=== PATIENT | female | born 1945 | race Caucasian/White ===

== ENCOUNTER 2019-03-22 15:07 | Emergency (ER) | payer MEDICARE ==
[~2019-03-22] VITALS: Ht 167.6 cm; Wt 52.2 kg
--- NOTE | 2019-03-22 15:15 | NUR ---
molina, from [facility], had syncopal episode, no trauma/injury, pale, bs 313. On room air, breathing evenly and unlabored. connected to the monitor and pulse ox. Kept comfortable, will continue to monitor accordingly.
--- NOTE | 2019-03-22 15:47 | NUR ---
pt ambulate to the bathroom wit 1 person assist
--- NOTE | 2019-03-22 15:47 | NUR ---
benton at bedside for x-ray
[2019-03-22 15:49] LABS: BASOPHILS % (AUTO) 0.3 % (0.0-2.0); EOSINOPHILS % (AUTO) 0.6 % (0.0-6.0); HEMATOCRIT 31 % (33-45); HEMOGLOBIN 10.2 g/dL (11.5-14.8); LYMPHOCYTES # (AUTO) 1.2 /CMM (0.8-4.8); LYMPHOCYTES % (AUTO) 18.6 % (20.0-44.0); MEAN CORPUSCULAR HGB CONC 33 g/dl (31.0-36.0); MEAN CORPUSCULAR VOLUME 92 fL (82-100); MONOCYTES # (AUTO) 0.4 /CMM (0.1-1.30); MONOCYTES % (AUTO) 6.3 % (2.0-12.0); NEUTROPHILS # (AUTO) 4.9 /CMM (1.8-8.9); NEUTROPHILS % (AUTO) 74.2 % (43.0-81.0); PLATELET COUNT (AUTO) 269 /CMM (150-450); RED BLOOD CELL COUNT(AUTO) 3.35 MIL/uL (4.0-5.2); WHITE BLOOD COUNT (AUTO) 6.6 K/uL (4.3-11.0)
[2019-03-22 15:57] LABS: ALANINE AMINOTRANSFERASE 10 U/L (12-78); ALBUMIN 4.2 g/dL (3.4-5.0); ALKALINE PHOSPHATASE 58 U/L (46-116); ASPARTATE AMINOTRANSFERASE 15 U/L (15-37); BILIRUBIN,DIRECT 0.1 mg/dL (0.0-0.2); BILIRUBIN,TOTAL 0.5 mg/dL (0.2-1.0); CARBON DIOXIDE 30 mmol/L (21-32); CHLORIDE 104 mmol/L (98-107); CREATININE 1.1 mg/dL (0.6-1.3); GLUCOSE 107 mg/dL (74-106); POTASSIUM 3.9 mmol/L (3.5-5.1); SODIUM SERUM 142 mmol/L (136-145); TOTAL PROTEIN, SERUM 7.1 g/dL (6.4-8.2); UREA NITROGEN, BLOOD 37 mg/dL (7-18)
--- NOTE | 2019-03-22 16:57 | NUR ---
TRANSPORT CALLED [facility] 1929 TRIP #[id number]
[2019-03-22 18:36] VITALS: BP 105/55
--- NOTE | 2019-03-22 18:37 | NUR ---
IV removed. Catheter intact and site benign. Pressure and 4x4 applied to site. No bleeding noted. Patient picked up by her son going back to [facility]. In no distress.
== END 2019-03-22 18:37 ==
LOC: ER 15:08
DX: R55 Syncope and collapse (principal); R42 Dizziness and giddiness; G20 Parkinson's disease
CPT/HCPCS: 36415; 71045-TC; 80048-TC; 80076-TC; 84484-TC; 85025-TC

== ENCOUNTER 2019-03-24 11:54 | Emergency (ER) | payer MEDICARE ==
[~2019-03-24] VITALS: Ht 167.6 cm; Wt 58.7 kg
--- NOTE | 2019-03-24 12:45 | NUR ---
BIBRA 881 C/O GLF "MY KNEES GOT WEAK AND FELL"+BUMP IN THE BACK OF THE HEAD. PT AAOX3, VSS. DENIES CP, SOB, DIZZINESS, N/V @ THIS TIME. PT SEEN & EVAL'D BY DR. BRENNER. PLACED ON MOBILE ARCHITECT, NSR. WILL CONT TO MONITOR.
--- NOTE | 2019-03-24 14:00 | NUR ---
CALLED [facility] [phone] ETA IS [phone] TRIP # [id number]
--- NOTE | 2019-03-24 15:00 | NUR ---
PT AAOX4, VSS. DENIES ANY OTHER DISCOMFORT AT THIS TIME. WILL CONT TO MONITOR.
--- NOTE | 2019-03-24 15:55 | NUR ---
CALLED [facility] [phone]
--- NOTE | 2019-03-24 16:00 | NUR ---
SPOKE WITH PATIENT REGARDING DR NGUYEN'S RECOMMENDATION FOR HER TO GO TO A DIFFERENT FACILITY SINCE SHE HAD FALLEN 4X ALREADY RECENTLY BUT PATIENT CHOSE TO GO BACK TO HER CURRENT FACILITY AND SHE SAID THAT SHE WILL GET A CAREGIVER TO TAKE CARE OF HER.
--- NOTE | 2019-03-24 16:05 | NUR ---
CALLED TRANSPORT PLACED PT ON WILL CALL.
--- NOTE | 2019-03-24 16:12 | NUR ---
CALLED TRANSPORT TAKING PT OFF OF WILL CALL
--- NOTE | 2019-03-24 16:13 | NUR ---
NEW ETA IS [phone] TRIP [id number] PER AJ
--- NOTE | 2019-03-24 16:14 | NUR ---
ADVISED THAT DR NGUYEN WOULD LIKE TO SEE HER IN THE OFFICE "SOON" AND TO CALL FOR AN APPOINTMENT
[2019-03-24 17:23] VITALS: BP 145/60
--- NOTE | 2019-03-24 17:23 | NUR ---
Patient discharged to home in stable condition. Written and verbal after care instructions given. Patient verbalizes understanding of instruction. PT [facility] TO [facility].
== END 2019-03-24 17:24 ==
LOC: ER 11:56
DX: S09.8XXA Other specified injuries of head, initial encounter (principal); G20 Parkinson's disease; W18.39XA Other fall on same level, initial encounter; Y93.89 Activity, other specified; Y92.89 Other specified places as the place of occurrence of the external cause; Y99.8 Other external cause status
CPT/HCPCS: 70450-TC

== ENCOUNTER 2019-06-02 10:40 | Emergency (ER) | payer MEDICARE ==
[~2019-06-02] VITALS: Ht 167.6 cm; Wt 53.5 kg
--- NOTE | 2019-06-02 10:50 | NUR ---
BIBRA88, PT STATES GOT LIGHT HEADED, TRIPPED AND FELL AT 0500. PATIENT A/OX4, BREATHING EVEN AND UNLABORED, NO SOB NOTED, KEPT COMFORTABLE.
--- NOTE | 2019-06-02 12:56 | NUR ---
CALLED [facility] FOR TRANSPORT TO THE [facility]. ETA [phone]. TRIP #[id number].
--- NOTE | 2019-06-02 13:54 | NUR ---
Patient a/ox4, ambulatory with steady gait. No distress noted.
--- NOTE | 2019-06-02 15:26 | NUR ---
REPORT GIVEN TO FAISAL AT [facility]. REPORT GIVEN TO AIRCRAFT ORDNANCE SYSTEMS MECHANIC. Patient discharged to home in stable condition. Written and verbal after care instructions given. Patient verbalizes understanding of instruction.
[2019-06-02 15:27] VITALS: BP 141/79
[2019-09-27] MEDS ORDERED: PANT40TA4 PO (09:46)
== END 2019-06-02 15:27 | disposition home or self-care (01) ==
LOC: ER 10:43
DX: S09.8XXA Other specified injuries of head, initial encounter (principal); G20 Parkinson's disease; Z98.890 Other specified postprocedural states; W01.198A Fall on same level from slipping, tripping and stumbling with subsequent striking against other object, initial encounter; Y93.89 Activity, other specified; Y92.002 Bathroom of unspecified non-institutional (private) residence as the place of occurrence of the external cause; Y99.8 Other external cause status
CPT/HCPCS: 70450-TC

== ENCOUNTER 2019-09-04 19:40 | Emergency (ER) | payer MEDICARE ==
[~2019-09-04] VITALS: Ht 167.6 cm; Wt 53.5 kg
--- NOTE | 2019-09-04 19:45 | NUR ---
PT BIBA S/P GLF AT THE FACILITY. R EYEBROW LACERATION NOTED. CHEEK ABRASION NOTED. NO ACTIVE BLEEDING. -LOC. PT AAOX4, RESPIRATIONS EVEN AND UNLABORED ON RA W/ NAD NOTED. PT CONNECTED TO THE MONITOR AND POX.
--- NOTE | 2019-09-04 19:50 | NUR ---
DR BRENNER AT BEDSIDE
[2019-09-04] MEDS ORDERED: LIDOCAINE 1%-EPI 1:100,000 20 ML VIAL ONE (19:54)
--- NOTE | 2019-09-04 19:57 | NUR ---
PT TAKEN TO CT
[2019-09-04] MEDS ORDERED: LIDOCAINE 1%-EPI 1:100,000 20 ML VIAL TP ONE (20:00)
--- NOTE | 2019-09-04 20:16 | NUR ---
PATIENT RETURNED FROM CT.
--- NOTE | 2019-09-04 20:37 | NUR ---
PA AT BEDSIDE FOR SUTURE PROCEDURE.
--- NOTE | 2019-09-04 21:20 | NUR ---
CALLED [facility] FOR TRANSPORTATION. ETA [phone]
--- NOTE | 2019-09-04 21:54 | NUR ---
REPORT GIVEN TO EMS. PT STABLE FOR TRANSPORT
--- NOTE | 2019-09-04 21:55 | NUR ---
REPORT GIVEN TO KELLY HARDING STAFF AT THE [facility] FOR [facility].
[2019-09-04 21:56] VITALS: BP 133/73
[2019-09-27] MEDS ORDERED: PANT40TA4 PO (09:46)
== END 2019-09-04 21:56 | disposition home or self-care (01) ==
LOC: ER 19:40
DX: S01.111A Laceration without foreign body of right eyelid and periocular area, initial encounter (principal); S01.411A Laceration without foreign body of right cheek and temporomandibular area, initial encounter; G20 Parkinson's disease; Z98.41 Cataract extraction status, right eye; Z98.42 Cataract extraction status, left eye; W01.0XXA Fall on same level from slipping, tripping and stumbling without subsequent striking against object, initial encounter; Y93.01 Activity, walking, marching and hiking; Y92.89 Other specified places as the place of occurrence of the external cause; Y99.8 Other external cause status
CPT/HCPCS: 12014; 70450; 70486; 99285; J3490

== ENCOUNTER 2019-09-27 09:02 | Inpatient (IN) | payer MEDICARE ==
[~2019-09-27] VITALS: Ht 167.6 cm; Wt 57.2 kg
--- NOTE | 2019-09-27 09:05 | NUR ---
PT BIBRA FROM [facility] C/O LOWER BACK LACERATION S/P SYNCOPAL EPISODE, PT IS AAOX3, NOT IN RESPIRATORY DISTRESS, HOOKED TO MEDICAL INSURANCE COLLECTOR, KEPT RESTED AND COMFORTABLE, WILL CONTINUE TO MONITOR.
--- NOTE | 2019-09-27 09:15 | NUR ---
PT SEEN AND EXAMINED BY .
[2019-09-27] MEDS ORDERED: LIDOCAINE 1%-EPI 1:100,000 20 ML VIAL ONE (09:19)
--- NOTE | 2019-09-27 09:25 | NUR ---
IV LINE ESTABLISHED BLOOD DRAWN AND SENT TO LAB.
[2019-09-27] MEDS ORDERED: TDAP [DIPH/PERTUSSIS/TET] 0.5 ML VIAL IM ONE ×2 (09:26→09:30)
[2019-09-27 09:30] LABS: BASOPHILS % (AUTO) 0.7 % (0.0-2.0); EOSINOPHILS % (AUTO) 3.2 % (0.0-6.0); HEMATOCRIT 32 % (33-45); HEMOGLOBIN 10.7 g/dL (11.5-14.8); LYMPHOCYTES # (AUTO) 1.8 /CMM (0.8-4.8); LYMPHOCYTES % (AUTO) 26.1 % (20.0-44.0); MEAN CORPUSCULAR HGB CONC 33 g/dl (31.0-36.0); MEAN CORPUSCULAR VOLUME 93 fL (82-100); MONOCYTES # (AUTO) 0.6 /CMM (0.1-1.30); MONOCYTES % (AUTO) 8.7 % (2.0-12.0); NEUTROPHILS # (AUTO) 4.2 /CMM (1.8-8.9); NEUTROPHILS % (AUTO) 61.3 % (43.0-81.0); PLATELET COUNT (AUTO) 276 /CMM (150-450); RED BLOOD CELL COUNT(AUTO) 3.47 MIL/uL (4.0-5.2); WHITE BLOOD COUNT (AUTO) 6.8 K/uL (4.3-11.0)
[2019-09-27] MEDS ORDERED: LIDOCAINE 1%-EPI 1:100,000 20 ML VIAL TP ONE (09:30)
--- NOTE | 2019-09-27 09:38 | NUR ---
RADIOLOGY AT BEDSIDE FOR CHEST XRAY.
[2019-09-27 09:40] LABS: CALCIUM, SERUM 10.1 mg/dL (8.5-10.1); CARBON DIOXIDE 32 mmol/L (21-32); CHLORIDE 107 mmol/L (98-107); GLUCOSE 101 mg/dL (74-106); SODIUM SERUM 144 mmol/L (136-145); UREA NITROGEN, BLOOD 33 mg/dL (7-18)
[2019-09-27 09:45] LABS: ALANINE AMINOTRANSFERASE 22 U/L (12-78); ALBUMIN 4.1 g/dL (3.4-5.0); ALKALINE PHOSPHATASE 74 U/L (46-116); ASPARTATE AMINOTRANSFERASE 23 U/L (15-37); BILIRUBIN,DIRECT 0.1 mg/dL (0.0-0.2); BILIRUBIN,TOTAL 0.4 mg/dL (0.2-1.0); TOTAL PROTEIN, SERUM 7.5 g/dL (6.4-8.2)
[2019-09-27] MEDS ORDERED: CARB-93 PO (09:46)
[2019-09-27] MEDS ORDERED: MIDO5TAB4 PO (09:46)
[2019-09-27] MEDS ORDERED: ATOR80TA PO (09:46)
[2019-09-27] MEDS ORDERED: SERT50TA PO (09:46)
[2019-09-27] MEDS ORDERED: PANT40TA49 PO (09:46)
--- NOTE | 2019-09-27 11:03 | NUR ---
REPORT GIVEN TO INES HARDING. AWAITING TRANSFER TO FLOOR.
[2019-09-27] MEDS ORDERED: DOCU-141 PO (11:22)
[2019-09-27] MEDS ORDERED: CARB-36 PO (11:22)
[2019-09-27] MEDS ORDERED: QUET25TA PO (11:22)
[2019-09-27] MEDS ORDERED: MELA3TAB41 PO (11:22)
[2019-09-27] MEDS ORDERED: PE/S52CR RC (11:22)
[2019-09-27] MEDS ORDERED: MAGN400T8 PO (11:22)
[2019-09-27] MEDS ORDERED: CARB10DR6 OP (11:22)
[2019-09-27] MEDS ORDERED: ACID1TAB14 PO (11:22)
--- NOTE | 2019-09-27 11:45 | NUR ---
TOOL PLANER SET UP OPERATOR OPENING NOTE Received patient awake in [facility] accompanied by 2 ER nurses. Patient was transferred to [facility] no signs of distress. Vital signs as follows BP 149/88 HR 73 RR 20 o2 sat 98 WT 123.5. On RA tolerating well. Hooked up to tele box. Changed patient into gown and took pictures of skin issues. Will cont to monitor.
[2019-09-27 12:00] VITALS: BP 149/86
[2019-09-27] MEDS ORDERED: IV NS 0.9% 1,000 ML IV PRN (14:02)
[2019-09-27] MEDS ORDERED: CARBOXYMETHYLCELLULOSE SODIUM 0.4 ML DROPERETTE EACHEYE PRN (14:30)
[2019-09-27] MEDS ORDERED: Z GUARD REMEDY 2 OZ OINT TP PRN (14:30)
[2019-09-27] MEDS ORDERED: ACETAMINOPHEN 325 MG TABLET PO PRN (14:30)
[2019-09-27] MEDS ORDERED: PHENYLEPHRINE/SHK LV/MO/PET,WH 30 GM TUBE RC PRN (14:30)
[2019-09-27] MEDS ORDERED: ONDANSETRON HCL/PF 4 MG/2 ML VIAL IVP PRN (14:30)
[2019-09-27] MEDS: ENOXAPARIN SODIUM 40 MG/0.4 ML DISP.SYRIN SQ SCH (15:43)
[2019-09-27] MEDS: CARBIDOPA/LEVODOPA 25/100 MG 1 UDTAB PO SCH ×2 (15:44→17:55)
[2019-09-27 16:00] VITALS: BP 139/76
[2019-09-27] MEDS: MAGNESIUM OXIDE 400 MG TABLET PO SCH (17:51)
[2019-09-27] MEDS: DOCUSATE SODIUM 100 MG CAPSULE PO SCH (17:52)
[2019-09-27] MEDS: MIDODRINE HCL (5MG) 5 MG TABLET PO SCH (17:52)
[2019-09-27] MEDS: CARBIDOPA/LEVA CR 25/100MG 1 TAB.SA PO SCH ×2 (19:00→21:16)
--- NOTE | 2019-09-27 19:15 | NUR ---
POST OFFICE MARKUP CLERK CLOSING NOTE Patient in bed awake no signs of distress on room air tolerating well. Patient is AO x4 tele reading SR. On a diaper kept clean and dry. Reposition q2h. Dressing intact on the lower back with 15 teena. Took picture and placed in chart. LAC #20 saline lock flushes well and dressing intact. Safety measures implemented. Call light within reach. Bed locked and on lowest position. Endorsed to shift stacker nurse for yesenia.
--- NOTE | 2019-09-27 19:30 | NUR ---
RN NOTES RECEIVED PATIENT IN BED ALERT AWAKE. BREATHING NORMAL NO SOB NOTED,RESPIRATION EVEN NON LABORED. SKIN WARM AND DRY TO TOUCH. LAC IV SITE PATENT INTACT FLUSHING WELL. ABDOMEN SOFT AND NON DISTENDED. SAFETY MEASURES IN PLACE, BED IN LOW AND LOCKED POSITION. CALL LIGHT WITHIN REACH. WILL CONT TO MONITOR.
[2019-09-27 20:00] VITALS: BP_SYST 109; BP_SYST 129; BP_DIAS 61; BP_DIAS 71
[2019-09-27] MEDS: ATORVASTATIN 40 MG TABLET PO SCH (21:13)
[2019-09-27] MEDS: QUETIAPINE FUMARATE 25 MG TABLET PO SCH (21:13)
[2019-09-27] MEDS ORDERED: Medication Not On Formulary EA (Melatonin 3 MG) PO SCH (22:00)
[2019-09-28] VITALS (12 sets, daily range): BP systolic 96–135; BP diastolic 54–77
[2019-09-28 07:01] LABS: BASOPHILS % (AUTO) 0.4 % (0.0-2.0); EOSINOPHILS % (AUTO) 2.3 % (0.0-6.0); HEMATOCRIT 28 % (33-45); HEMOGLOBIN 9.3 g/dL (11.5-14.8); LYMPHOCYTES # (AUTO) 1.3 /CMM (0.8-4.8); LYMPHOCYTES % (AUTO) 19.9 % (20.0-44.0); MEAN CORPUSCULAR HGB CONC 33 g/dl (31.0-36.0); MEAN CORPUSCULAR VOLUME 91 fL (82-100); MONOCYTES # (AUTO) 0.5 /CMM (0.1-1.30); MONOCYTES % (AUTO) 7.6 % (2.0-12.0); NEUTROPHILS # (AUTO) 4.5 /CMM (1.8-8.9); NEUTROPHILS % (AUTO) 69.8 % (43.0-81.0); PLATELET COUNT (AUTO) 246 /CMM (150-450); RED BLOOD CELL COUNT(AUTO) 3.03 MIL/uL (4.0-5.2); WHITE BLOOD COUNT (AUTO) 6.5 K/uL (4.3-11.0)
[2019-09-28 07:23] LABS: ALBUMIN 3.4 g/dL (3.4-5.0); BILIRUBIN,TOTAL 0.4 mg/dL (0.2-1.0); CALCIUM, SERUM 9.6 mg/dL (8.5-10.1); CREATININE 1.1 mg/dL (0.6-1.3); MAGNESIUM 2.2 mg/dL (1.8-2.4); PHOSPHORUS 2.4 mg/dL (2.5-4.9); POTASSIUM 3.9 mmol/L (3.5-5.1); TOTAL PROTEIN, SERUM 6.5 g/dL (6.4-8.2)
[2019-09-28] MEDS: DOCUSATE SODIUM 100 MG CAPSULE PO SCH ×2 (09:35→17:59)
[2019-09-28] MEDS: MAGNESIUM OXIDE 400 MG TABLET PO SCH ×2 (09:35→17:56)
[2019-09-28] MEDS: ACIDOPHILUS/BULGARICUS 1 EACH TAB.CHEW PO SCH (09:35)
[2019-09-28] MEDS: CARBIDOPA/LEVODOPA 25/100 MG 1 UDTAB PO SCH ×3 (09:36→17:58)
[2019-09-28] MEDS: PANTOPRAZOLE 40 MG TABLET.DR PO SCH (09:36)
[2019-09-28] MEDS: CARBIDOPA/LEVA CR 25/100MG 1 TAB.SA PO SCH ×4 (09:36→22:24)
[2019-09-28] MEDS: MIDODRINE HCL (5MG) 5 MG TABLET PO SCH ×2 (09:37→17:57)
[2019-09-28] MEDS: SERTRALINE HCL 25 MG TABLET PO SCH (09:38)
[2019-09-28] MEDS: ENOXAPARIN SODIUM 40 MG/0.4 ML DISP.SYRIN SQ SCH (09:39)
[2019-09-28] MEDS: NEUTRA PHOS 1 POWD.PACKET PO SCH ×2 (12:35→18:00)
--- NOTE | 2019-09-28 18:49 | NUR ---
POINT OF CARE TECHNICIAN 1 PATIENT REMAINS STABLE AT THIS TIME, NO SOB, NO ACUTE RESPIRATORY DISTRESS NO PAIN. VITALS STABLE ALL NEEDS MET, WOUND TX COMPLETED . BED LOCKED LOWEST POSITION , CALL LIGHT WITH IN REACH ALL SAFETY MEASURES IMPLEMENTED PERHOSPITAL POLICY.
[2019-09-28] MEDS: IV NS 0.9% 1,000 ML IV PRN (18:56)
--- NOTE | 2019-09-28 20:24 | NUR ---
MS/TELE/RN AT 1930, PATIENT WAS IN [place], ON BED, AWAKE, ALERT, ORIENTED TO PERSON ONLY, UNABLE TO STATE DATE, TIME AND PLACE. PATIENT WAS COMFORTABLE, NO C/O PAIN, NO DISTRESS NOTED, FULL PRECAUTIONS PER PROTOCOL, ENCOURAGED PATIENT TO CALL BY USING CALL LIGHT FOR ANY ASSISTANCE, VERBALIZED UNDERSTANDING, PLACED CALL LIGHT IN REACH. WILL MONITOR.
[2019-09-28] MEDS: QUETIAPINE FUMARATE 25 MG TABLET PO SCH (22:24)
[2019-09-28] MEDS: ATORVASTATIN 40 MG TABLET PO SCH (22:24)
[2019-09-29] MEDS: IV NS 0.9% 1,000 ML IV PRN (01:44)
--- NOTE | 2019-09-29 06:02 | NUR ---
MS/TELE/RN PATIENT IS AWAKE, COMFORTABLE, NO DISTRESS NOTED, ALL NEEDS ATTENDED AT THIS TIME, WILL CONTINUE TO MONITOR.
--- NOTE | 2019-09-29 06:19 | NUR ---
MS/TELE/RN ATTEMPTED TO CHANGE THE SURGICAL DRESSING AT THE BACK , BUT PATIENT REFUSED. PATIENT ALSO REFUSED THE BLOOD DRAW PER PROPERTY MANAGER. WILL ENDORSE.
[2019-09-29 08:00] VITALS: BP 139/71
[2019-09-29] MEDS: CARBIDOPA/LEVA CR 25/100MG 1 TAB.SA PO SCH ×3 (08:17→16:51)
[2019-09-29] MEDS: MAGNESIUM OXIDE 400 MG TABLET PO SCH ×2 (08:18→16:51)
[2019-09-29] MEDS: SERTRALINE HCL 25 MG TABLET PO SCH (08:18)
[2019-09-29] MEDS: PANTOPRAZOLE 40 MG TABLET.DR PO SCH (08:18)
[2019-09-29] MEDS: DOCUSATE SODIUM 100 MG CAPSULE PO SCH ×2 (08:18→16:51)
[2019-09-29] MEDS: ACIDOPHILUS/BULGARICUS 1 EACH TAB.CHEW PO SCH (08:18)
[2019-09-29] MEDS: CARBIDOPA/LEVODOPA 25/100 MG 1 UDTAB PO SCH ×3 (08:19→18:00)
[2019-09-29] MEDS: ENOXAPARIN SODIUM 40 MG/0.4 ML DISP.SYRIN SQ SCH (08:20)
[2019-09-29] MEDS: MIDODRINE HCL (5MG) 5 MG TABLET PO SCH ×2 (08:23→16:51)
[2019-09-29 16:00] VITALS: BP 134/70
--- NOTE | 2019-09-29 16:30 | NUR ---
Patient refused blood draw
--- NOTE | 2019-09-29 17:56 | NUR ---
Patient refused d/c pictures to take. Patient is confused, unable to provide teaching
--- NOTE | 2019-09-29 18:15 | NUR ---
Report called to Sandy HARDING ( [facility])
--- NOTE | 2019-09-29 18:42 | NUR ---
pATIENT RESTING IN BED , NO DISTRESS NOTED, NO COMPLAINS OF PAIN, ON ROOM AIR. TEXTILE COLORIST FORMULATOR TIME 1944 [facility]. WILL ENDORCE TO NEXT SHIFT FOR [facility].
[2019-09-29 20:00] VITALS: BP 147/85
--- NOTE | 2019-09-30 01:32 | NUR ---
MS/TELE/RN AMBULANCE WAS HERE AT 1930 TO [facility] AND INSPECTOR PATIENT TO [facility]. PATIENT WAS AWAKE, ALERT ORIENTED TO NAME, CONFUSED, COMFORTABLE, NO DISTRESS NOTED. PATIENT UNABLE TO SIGN PAPER WORKS. INFORMED PATIENT THAT [facility], VERBALIZED UNDERSTANDING, IV WAS REMOVED, BELONGINGS WERE RETURNED, REPORT WAS GIVEN TO EMT, PAPER WORKS GIVEN TO EMT, VITAL SIGNS STABLE BP 147/85, HR 66, RR 18, TEMP 97.7, O2 SAT RA 97%, ARM BAND REMOVED. PATIENT LEFT THE FLOOR AT 2014.
== END 2019-09-29 20:15 | DRG 57 ==
LOC: ER 09:06 → TELE 10:34 → MED 09-28 20:51
PROVIDERS: ADMIT Nurse Practitioner Acute Care; ATTEND Nurse Practitioner Acute Care
DX: G20 Parkinson's disease (principal); G93.1 Anoxic brain damage, not elsewhere classified; N17.9 Acute kidney failure, unspecified; G90.8 Other disorders of autonomic nervous system; F32.9 Major depressive disorder, single episode, unspecified; K21.9 Gastro-esophageal reflux disease without esophagitis; F02.80 Dementia in other diseases classified elsewhere, unspecified severity, without behavioral disturbance, psychotic disturbance, mood disturbance, and anxiety; E83.39 Other disorders of phosphorus metabolism; E86.9 Volume depletion, unspecified; R31.9 Hematuria, unspecified; R55 Syncope and collapse; Z91.81 History of falling; E78.5 Hyperlipidemia, unspecified; D64.9 Anemia, unspecified
CPT/HCPCS: 36415; 71045-TC; 80048-TC; 80053-TC; 80061-TC; 80076-TC; 83735-TC; 84100-TC; 84484-TC; 85025-TC; 85730-TC; 87081-TC; 90715; 93307-TC; 93880-TC; 97112-TC; 97116-TC; 97530-TC; A6403; G0378; J1650; J3490; J7030